=== PATIENT | male | born 1980 | race African-American/Black ===

== ENCOUNTER 2017-07-03 02:18 | Emergency (ER) | payer OTHER ==
[2017-07-03 02:25] VITALS: BP 116/78; PULSE 92; TEMP 98.8; BMI 21.9
[2017-07-03] MEDS ORDERED: IBUPROFEN 600 MG TABLET (FP) PO ONE ×2 (02:34)
--- NOTE | 2017-07-03 02:35 | PDOC ---
History of Present Illness - General Chief Complaint: Injury Stated Complaint: HIT LOWER RIGHT LEG ON TOY CHEST THIS AM Time Seen by Provider: 07/03/17 02:23 History Source: Patient Exam Limitations: No Limitations - History of Present Illness Initial Comments: 07/03/17 02:32 This is a 37-year-old male who comes in complaining of pain to his right campo area. Patient said he ran into a toy box and bruised his campo. Patient says his last tetanus was 2 years ago. Patient denies any other injuries. PAST MEDICAL HISTORY: no significant history PAST SURGICAL HISTORY: no significant history FAMILY HISTORY: no pertinant history SOCIAL HISTORY: Pt lives with family and is employed. MEDICATIONS: reviewed ALLERGIES: As per nursing notes Review of Systems General: No fevers or chills, no weakness, no weight loss HEENT: No change in vision. No sore throat,. No ear pain CardioVascular: No chest pain or shortness of breath Respiratory:No cough, or wheezing. Gastrointestinal: no nausea, vomitting, diarrhea or constipation, No rectal bleeding Genitourinary: No dysuria, hematuria, or frequency Musculoskeletal: Right lower extremity injury as per history of present illness Neurologic: No headache, vertigo, dizziness or loss of consciousness Psychiatric: nor depression Skin: No rashes or easy bruising Endocrine: no increased thirst or abnormal weight change Allergic: no skin or latex allergy All other systems reviewed and normal GENERAL: The patient is awake, alert, and fully oriented, in no acute distress. HEAD: Normal with no signs of trauma. EYES: Pupils equal, round and reactive to light, extraocular movements intact, sclera anicteric, conjunctiva clear. EXTREMITIES: Right lower extremity, there is an abrasion of the anterior campo with no bleeding at this time. There is a contusion but no deformity or bony tenderness of the area. Neurovascular distal is intact. NEUROLOGICAL: Normal speech, normal gait. PSYCH: Normal mood, normal affect. SKIN: Warm, Dry, normal turgor, no rashes or lesions noted. This is a 37-year-old right campo contusion status post walking to a toy box. Patient's tetanus is up-to-date. Bacitracin was applied to the abrasion and patient given Motrin for the pain. Patient discharged home. Past History - Past Medical History Allergies/Adverse Reactions: Allergies Allergy/AdvReac Type Severity Reaction Status Date / Time No Known Allergies Allergy Verified 07/03/17 02:19 Home Medications: Ambulatory Orders Albuterol Sulfate Inhaler - [Ventolin HFA Inhaler -] 1 - 2 inh PO QID PRN Asthma: Yes - Immunization History Td Vaccination: Yes Immunization Up to Date: Yes - Suicide/Smoking/Psychosocial Hx Smoking History: Current every day smoker Have you smoked in the past 12 months: Yes Number of Cigarettes Smoked Daily: 20 Information on smoking cessation initiated: Yes 'Breaking Loose' booklet given: 01/10/14 Hx Alcohol Use: No Drug/Substance Use Hx: No Substance Use Type: None *Physical Exam - Vital Signs Last Vital Signs Temp Pulse Resp BP Pulse Ox 98.8 F 92 H 16 116/78 96 07/03/17 02:21 07/03/17 02:21 07/03/17 02:21 07/03/17 02:21 07/03/17 02:21 *DC/Admit/Observation/Transfer Diagnosis at time of Disposition: Abrasion of right lower leg, initial encounter Contusion of right lower extremity Qualifiers: Encounter type: initial encounter Qualified Code(s): S80.11XA - Contusion of right lower leg, initial encounter; S80.11XA - Contusion of right lower leg, initial encounter - Discharge Dispostion Disposition: HOME Condition at time of disposition: Stable Admit: No - Patient Instructions Additional Instructions: Tylenol or Motrin as needed for pain. Apply some bacitracin or an antibiotic ointment to the abrasion and a Band-Aid until it is scabbed over. Return to the emergency department immediately with ANY new, persistent or worsening symptoms. Continue any medications as previously prescribed by your physician. You should follow up with your primary doctor as soon as possible regarding today's emergency department visit. . Please make sure your doctor reviews the results of your emergency evaluation. Thank you for coming to the Emergency Department today for your care. It was a pleasure to see you today. Please note that your evaluation is INCOMPLETE until you follow-up with your doctor.
== END 2017-07-03 02:39 | disposition home or self-care (01) ==
LOC: FER 02:18
DX: S80.11XA Contusion of right lower leg, initial encounter (principal); W22.03XA Walked into furniture, initial encounter; Y93.89 Activity, other specified; Y92.9 Unspecified place or not applicable; F17.210 Nicotine dependence, cigarettes, uncomplicated
CPT/HCPCS: 99281-25

== ENCOUNTER 2018-03-29 19:07 | Emergency (ER) | payer SELFPAY ==
[2018-03-29 19:12] VITALS: BP 140/94; PULSE 80; TEMP 98.2; BMI 25.0
[2018-03-29] MEDS ORDERED: PENICILLIN V POTASSIUM 500 MG TABLET PO ONE (19:26)
[2018-03-29] MEDS ORDERED: KETOROLAC TROMETHAMINE 60 MG/2 ML VIAL IM ONE (19:26)
[2018-03-29] MEDS ORDERED: metroNIDAZOLE 250 MG TABLET PO ONE (19:27)
[2018-03-29] MEDS ORDERED: KETOROLAC TROMETHAMINE 60 MG/2 ML VIAL ONE (19:30)
[2018-03-29] MEDS ORDERED: AMOXICILLIN 500 MG CAPSULE (FP) PO ONE (19:35)
--- NOTE | 2018-03-29 19:36 | PDOC ---
History of Present Illness - General History Source: Patient Exam Limitations: No Limitations - History of Present Illness Initial Comments: 03/29/18 19:52 The patient is a 37 year old male with history of cigarette smoking, asthma, who presents to the ED complaining of 1 day of left sided tooth pain. Pain is moderate and radiates the left side of the face. The patient denies fever, chill , nausea, vomiting, or diaphoresis. <Glory Nicole - Last Filed: 03/29/18 20:13> <Shelly Del Rio - Last Filed: 03/30/18 01:05> - General Chief Complaint: Toothache Stated Complaint: TOOTHACHE/HEADACHE Time Seen by Provider: 03/29/18 19:30 Past History <Glory Nicole - Last Filed: 03/29/18 20:13> - Past Medical History Asthma: Yes COPD: No - Immunization History Td Vaccination: Yes Immunization Up to Date: Yes - Suicide/Smoking/Psychosocial Hx Smoking History: Current every day smoker Have you smoked in the past 12 months: Yes Number of Cigarettes Smoked Daily: 20 Information on smoking cessation initiated: Yes 'Breaking Loose' booklet given: 07/03/17 Hx Alcohol Use: No Drug/Substance Use Hx: No Substance Use Type: None <Shelly Del Rio - Last Filed: 03/30/18 01:05> - Past Medical History Allergies/Adverse Reactions: Allergies Allergy/AdvReac Type Severity Reaction Status Date / Time No Known Allergies Allergy Verified 07/03/17 02:19 Home Medications: Ambulatory Orders Albuterol Sulfate Inhaler - [Ventolin HFA Inhaler -] 1 - 2 inh PO QID PRN Penicillin V Potassium [Pen Vee K -] 250 mg PO QID #28 tablet 03/29/18 Review of Systems - Review of Systems Able to Perform ROS?: Yes Comments:: 03/29/18 19:53 GENERAL/CONSTITUTIONAL: No fever or chills. No weakness. HEAD, EYES, EARS, NOSE AND THROAT: +L dental pain. No change in vision. No ear discharge. No sore throat. CARDIOVASCULAR: No chest pain or shortness of breath. RESPIRATORY: +Cough. GASTROINTESTINAL: No nausea, vomiting, diarrhea or constipation. GENITOURINARY: No dysuria, frequency, or change in urination. MUSCULOSKELETAL: No joint or muscle swelling or pain. No neck or back pain. SKIN: No rash NEUROLOGIC: No headache, vertigo, loss of consciousness, or change in strength/ sensation. ENDOCRINE: No increased thirst. No abnormal weight change. HEMATOLOGIC/LYMPHATIC: No anemia, easy bleeding, or history of blood clots. ALLERGIC/IMMUNOLOGIC: No hives or skin allergy. <Glory Nicole - Last Filed: 03/29/18 20:13> *Physical Exam - Vital Signs Last Vital Signs Temp Pulse Resp BP Pulse Ox 98.2 F 80 16 140/94 100 03/29/18 19:08 03/29/18 19:08 03/29/18 19:08 03/29/18 19:08 03/29/18 19:08 - Physical Exam Comments: 03/29/18 20:13 GENERAL: Awake, alert, and fully oriented, in no acute distress. Smells of cigarettes. HEAD: No signs of trauma EYES: PERRLA, EOMI, sclera anicteric, conjunctiva clear ENT: Auricles normal inspection, hearing grossly normal, nares patent, oropharynx clear without exudates. Moist mucosa. Dental carry with cavity on tooth 16. No facial swelling. NECK: Normal ROM, supple, no lymphadenopathy, JVD, or masses LUNGS: +Minimally coarse breath sounds bilaterally. HEART: Regular rate and rhythm, normal S1 and S2, no murmurs, rubs or gallops ABDOMEN: Soft, nontender, normoactive bowel sounds. No guarding, no rebound. No masses EXTREMITIES: Normal range of motion, no edema. No clubbing or cyanosis. No cords, erythema, or tenderness NEUROLOGICAL: Cranial nerves II through XII grossly intact. Normal speech, normal gait SKIN: Warm, Dry, normal turgor. Healing abrasions to the dorsal aspect of the left upper extremity and left wrist. <Glory Nicole - Last Filed: 03/29/18 20:13> - Vital Signs Last Vital Signs Temp Pulse Resp BP Pulse Ox 98.2 F 80 16 140/94 100 03/29/18 19:08 03/29/18 19:08 03/29/18 19:08 03/29/18 19:08 03/29/18 19:08 <Shelly Del Rio - Last Filed: 03/30/18 01:05> ED Treatment Course - Medications Given in the ED: ED Medications Discontinued Medications Generic Name Dose Route Start Last Admin Trade Name Noe PRN Reason Stop Dose Admin Ketorolac Tromethamine 60 mg 03/29/18 19:26 03/29/18 19:36 Toradol Injection - IM 03/29/18 19:27 60 mg ONCE ONE Administration <Glory Nicole - Last Filed: 03/29/18 20:13> Medical Decision Making - Medical Decision Making 03/30/18 01:03 Pt has tooth pain. He has a dental etelvina.No fever and no chills, no gingival swelling. He receievd toradol for the pain, but ran away from the ER when I noticed that he had what looked like a handgun in his shorts pocket. He never received the antibiotics that I ordered for him. I sent prescriptions to his pharmacy. Pt eloped. <Shelly Del Rio - Last Filed: 03/30/18 01:05> *DC/Admit/Observation/Transfer - Attestations Scribe Attestion: 03/29/18 19:58 Documentation prepared by Glory Nicole, acting as site medical director for Shelly Del Rio MD. <Glory Nicole - Last Filed: 03/29/18 20:13> - Discharge Dispostion Decision to Admit order: No <Shelly Del Rio - Last Filed: 03/30/18 01:05> Diagnosis at time of Disposition: Dental caries, Tooth pain - Discharge Dispostion Disposition: ELOPED Condition at time of disposition: Stable - Prescriptions Prescriptions: Penicillin V Potassium [Pen Vee K -] 250 mg PO QID #28 tablet - Patient Instructions Printed Discharge Instructions: DI for Tooth Decay, DI for Dental Pain
== END 2018-03-29 19:45 | disposition left against medical advice (07) ==
LOC: FER 19:07
PROC: 3E0233Z Introduction of Anti-inflammatory into Muscle, Percutaneous Approach (ICD-10-PCS; principal; 2018-03-29)
DX: K02.9 Dental caries, unspecified (principal); F17.210 Nicotine dependence, cigarettes, uncomplicated; J45.909 Unspecified asthma, uncomplicated
CPT/HCPCS: 99282-25